=== PATIENT | male | born 1975 | race Caucasian/White ===

== ENCOUNTER 2017-08-05 22:59 | Emergency (ER) | payer SELFPAY ==
--- NOTE | 2017-08-05 23:33 | RADIOLOGY REPORT (SQ) ---
EXAM DESCRIPTION: XR FOOT 3 OR MORE VIEWS COMPLETED DATE/TME: 08/05/2017 00:00 CLINICAL HISTORY: 42 years, Male, Pain s/p injury COMPARISON: None. FINDINGS: 3 views of the left foot. No acute fracture or dislocation. Normal osseous mineralization. Tarsals and metatarsals are appropriately aligned. IMPRESSION: No acute fracture or dislocation. 2011 [employer]- All Rights Reserved
[2017-08-06] MEDS ORDERED: SULFAMETHOXAZOLE/TRIMETHOPRIM 800-160 MG TABLET PO ONE (00:43)
[2017-08-06] MEDS ORDERED: MORPHINE SULFATE IR 15 MG TABLET PO ONE (00:43)
[2017-08-06] MEDS ORDERED: CEPHALEXIN 500 MG CAPSULE PO ONE (00:43)
--- NOTE | 2017-08-06 00:46 | ER Document Report ---
ED Extremity Problem, Lower - General Chief Complaint: Foot Pain Stated Complaint: FOOT PAIN Time Seen by Provider: 08/06/17 00:35 Notes: Patient is a 42-year-old male that comes emergency department for chief complaint of left foot pain. He states that 3 days ago he kicked a scrap metal which caused a scrape on the top of his foot and swelling, he states the area has started to become red and more swollen with spreading redness and increased pain. He states he started to take his friend's amoxicillin but this did not do anything. He states that he is walking on crutches and then accidentally slipped and then he inverted his foot causing pain and even more swelling. He comes by EMS after the inversion injury. His tetanus is up-to-date within 5 years. He is not diabetic. He denies any daily medications. He denies any IV drug abuse, drug abuse, he smokes occasionally. He denies any fever or chills. TRAVEL OUTSIDE OF THE [place] IN LAST 30 DAYS: No - Related Data Allergies/Adverse Reactions: bee pollen [Bee Pollen] Allergy (Verified 12/25/15 04:21) Past Medical History - General Information source: Patient - Social History Smoking Status: Former Smoker Frequency of alcohol use: Occasional Drug Abuse: None Lives with: Alone Family History: Reviewed & Not Pertinent - Past Medical History Cardiac Medical History: Reports: Hx Hypertension Skin Medical History: Reports Hx Cellulitis Past Surgical History: Reports: Hx Orthopedic Surgery - Immunizations Immunizations up to date: Yes Hx Diphtheria, Pertussis, Tetanus Vaccination: Yes Review of Systems - Review of Systems Constitutional: No symptoms reported EENT: No symptoms reported Cardiovascular: No symptoms reported Respiratory: No symptoms reported Gastrointestinal: No symptoms reported Genitourinary: No symptoms reported Male Genitourinary: No symptoms reported Musculoskeletal: See HPI Skin: See HPI Hematologic/Lymphatic: No symptoms reported Neurological/Psychological: No symptoms reported Physical Exam - Vital signs Vitals: Temp Pulse Resp BP Pulse Ox 99.2 F 87 20 148/94 H 100 08/05/17 23:25 08/05/17 23:25 08/05/17 23:25 08/05/17 23:25 08/05/17 23:25 - Notes Notes: GENERAL: Patient appears mildly uncomfortable, no severe distress HEAD: Normocephalic, atraumatic. EYES: Pupils equal, round, and reactive to light. Extraocular movements intact. ENT: Oral mucosa moist, tongue midline. [Nares patent, no nasal septal hematoma , TM's intact.] NECK: Full range of motion. Supple. Trachea midline. LUNGS: Clear to auscultation bilaterally, no wheezes, rales, or rhonchi. No respiratory distress. HEART: Regular rate and rhythm. No murmur ABDOMEN: Soft, non-tender. Non-distended. Bowel sounds present in all 4 quadrants. EXTREMITIES: There is swelling of the soft tissues of the left foot mainly dorsally and also laterally, extends slightly up the ankle, there is erythema and tenderness around abrasions over the dorsal aspect of the foot as well, erythema extends of the ankle slightly. No induration or fluctuance, no discolored drainage, normal distal sensation and capillary refill, remaining lower extremity exam unremarkable. BACK: no cervical, thoracic, lumbar midline tenderness. No saddle anesthesia, normal distal neurovascular exam. NEUROLOGICAL: Alert and oriented x3. Normal speech. [cranial nerves II through XII grossly intact]. PSYCH: Normal affect, normal mood. SKIN: Warm, dry, normal turgor. No rashes or lesions noted. Course - Re-evaluation Re-evalutation: Patient's foot is very swollen on the left side, initially from injury, secondarily from suspected cellulitis based on his exam, and then he twisted his ankle again today. No fracture noted on x-ray, no foreign body, no other abnormality other than soft tissue swelling. Patient is afebrile, normal vital signs, not diabetic, and has had cellulitis in the past with good response to oral medications. Patient placed on oral antibiotics, provided with pain medication, crutches, dressing, and I discussed very carefully with patient recommendations for dressing, care of the wound, elevation, follow-up, and return precautions. Patient states understanding and agreement with plan. - Vital Signs Vital signs: Temp Pulse Resp BP Pulse Ox 98.6 F 80 14 132/66 H 97 08/06/17 03:00 08/06/17 03:00 08/06/17 03:00 08/06/17 03:00 08/06/17 03:00 Procedures - Immobilization Left ankle Pre-Proc Neuro Vasc Exam: Normal Immobilizer type: Sergio wrap Performed by: BOOKER Post-Proc Neuro Vasc Exam: Normal Alignment checked and good: Yes Discharge - Discharge Clinical Impression: Swelling of left foot Injury of left foot Qualifiers: Encounter type: initial encounter Qualified Code(s): S99.922A - Unspecified injury of left foot, initial encounter Cellulitis Qualifiers: Site of cellulitis: extremity Site of cellulitis of extremity: lower extremity Laterality: left Qualified Code(s): L03.116 - Cellulitis of left lower limb Condition: Stable Disposition: HOME, SELF-CARE Additional Instructions: The x-ray is normal. Examination is consistent with soft tissue injury, ligament sprain, and cellulitis from the wound. This needs to be elevated, keep clean, apply topical antibiotic to the abrasion area, clean gently with soap and water, use the crutches, change dressing daily. Take the antibiotics as prescribed. Follow-up with primary care. Return immediately if you worsen including spreading redness, fever, or any other concerning or worsening symptoms. Prescriptions: Morphine Sulfate [Morphine Ir 15 Mg Tablet] 15 mg PO Q4HP PRN #12 tablet PRN Reason: Cephalexin Monohydrate [Keflex 500 mg Capsule] 500 mg PO QID #28 capsule Sulfamethoxazole/Trimethoprim [Bactrim Ds Tablet] 1 each PO BID #14 tablet Forms: Return to Work
[2017-08-06 03:02] VITALS: BP 132/66
== END 2017-08-06 02:59 | disposition home or self-care (01) ==
LOC: ER 22:59
DX: S99.922A Unspecified injury of left foot, initial encounter (principal); L03.116 Cellulitis of left lower limb; M79.672 Pain in left foot; W22.09XA Striking against other stationary object, initial encounter; I10 Essential (primary) hypertension; Z87.891 Personal history of nicotine dependence
CPT/HCPCS: 99283

== ENCOUNTER 2017-08-13 19:34 | Emergency (ER) | payer SELFPAY ==
--- NOTE | 2017-08-13 20:50 | ER Document Report ---
ED Extremity Problem, Lower <JEFFREY RUFFIN - Last Filed: 08/13/17 22:47> - General Mode of Arrival: Ambulatory Information source: Patient TRAVEL OUTSIDE OF THE [place] IN LAST 30 DAYS: No <ROXANN ENAMORADO - Last Filed: 08/15/17 01:28> - General Chief Complaint: Ankle Injury Stated Complaint: ANKLE INJURY Time Seen by Provider: 08/13/17 20:31 Notes: Patient is a 42 year old male presenting to the emergency department complaining of left foot pain. Patient presented to the emergency department on August 05, 2017 complaining of left ankle and foot pain, swelling and redness after kicking a piece of scrap metal which caused abrasions and swelling to the dorsal aspect of his left foot. He was discharged with prescriptions of Keflex and Septra DS. Patient presents today stating he still has left foot pain, redness and erythema. Patient states his pain is exacerbated when standing and describes it as a throbbing pain. He states he initially thought the injury was getting better due to the erythema localizing to the foot instead of the entire lower extremity. He states he finished his doses of antibiotics today and has been keeping his foot elevated. He also states he has been soaking and scrubbing his left foot. Patient denies any fevers. (ROXANN ENAMORADO) - Related Data Allergies/Adverse Reactions: bee pollen [Bee Pollen] Allergy (Verified 12/25/15 04:21) Past Medical History - General Information source: Patient - Social History Smoking Status: Current Every Day Smoker Chew tobacco use (# tins/day): No Frequency of alcohol use: None Drug Abuse: None Family History: Reviewed & Not Pertinent Patient has suicidal ideation: No Patient has homicidal ideation: No - Past Medical History Cardiac Medical History: Reports: Hx Hypertension Skin Medical History: Reports Hx Cellulitis Past Surgical History: Reports: Hx Orthopedic Surgery - Immunizations Immunizations up to date: Yes Hx Diphtheria, Pertussis, Tetanus Vaccination: Yes <ROXANN ENAMORADO - Last Filed: 08/15/17 01:28> Review of Systems - Review of Systems Constitutional: No symptoms reported EENT: No symptoms reported Cardiovascular: No symptoms reported Respiratory: No symptoms reported Gastrointestinal: No symptoms reported Genitourinary: No symptoms reported Male Genitourinary: No symptoms reported Musculoskeletal: See HPI Skin: No symptoms reported Hematologic/Lymphatic: No symptoms reported Neurological/Psychological: No symptoms reported -: Yes All other systems reviewed and negative <ROXANN ENAMORADO - Last Filed: 08/15/17 01:28> Physical Exam <JEFFREY RUFFIN - Last Filed: 08/13/17 22:47> - General General appearance: Appears well, Alert In distress: None - HEENT Head: Normocephalic, Atraumatic Eyes: Normal Conjunctiva: Normal Extraocular movements intact: Yes Pupils: PERRL Neck: Normal - Respiratory Respiratory status: No respiratory distress Chest status: Nontender Breath sounds: Normal Chest palpation: Normal - Cardiovascular Rhythm: Regular Heart sounds: Normal auscultation Murmur: No Friction rub: No Gallop: None auscultated - Back Back: Normal - Extremities General upper extremity: Normal ROM General lower extremity: Normal ROM Foot: Other - Dorsal aspect of left foot is erythematous with some edema. Open wound on the dorsal aspect is approximately 3 cm, contains some exudate and fluctuance with surrounding erythema. No edema to the ankles. Skin peripheral to the original wound is blistering. - Neurological Neuro grossly intact: Yes Cognition: Normal Orientation: AAOx4 Dylon Coma Scale Eye Opening: Spontaneous Dylon Coma Scale Verbal: Oriented Dylon Coma Scale Motor: Obeys Commands [place] Coma Scale Total: 15 Speech: Normal - Psychological Associated symptoms: Normal affect, Normal mood - Skin Skin Temperature: Warm Skin Moisture: Dry <KELSEAFADIELSY - Last Filed: 08/15/17 01:28> - Vital signs Vitals: Pulse Resp BP Pulse Ox 88 18 138/96 H 100 08/13/17 22:00 08/13/17 22:00 08/13/17 22:00 08/13/17 22:00 - Skin Notes: See extremities for open wound description. (ROXANN ENAMORADO) Course - Laboratory Result Diagrams: 08/13/17 20:40 08/13/17 20:40 <JEFFREY RUFFIN - Last Filed: 08/13/17 22:47> - Laboratory Result Diagrams: 08/13/17 20:40 08/13/17 20:40 <ROXANN ENAMORADO - Last Filed: 08/15/17 01:28> - Re-evaluation Re-evalutation: 08/13/17 21:44 PROCEEDURE: Dorsal foot has a scalded skin appearance and tightly adherent blistered skin layer. This adherent skin layer is thick and tough but was able to be elevated and debrided. The patient left dorsal foot wound was scrubbed with saline soaked gauze and debrided with scissors and pickups. There is some granulation tissue in the wound. There was a cellophane-like tightly adherent blistered skin over much of the dorsal foot extending up to the erosion in the center of the foot. This was debrided by running the scissors between the viable skin in this almost clear covering, then trimming it as it blended into normal skin. (JEFFREY RUFFIN) - Vital Signs Vital signs: Temp Pulse Resp BP Pulse Ox 98.1 F 84 18 137/97 H 100 08/13/17 23:46 08/13/17 23:46 08/13/17 23:46 08/13/17 23:46 08/13/17 23:46 - Laboratory Laboratory results interpreted by me: 08/13/17 08/13/17 20:40 20:40 Hgb 12.0 L Hct 35.5 L MCV 79 L MCH 26.7 L Potassium 5.5 H Carbon Dioxide 31 H AST 65 H Discharge <JEFFREY RUFFIN - Last Filed: 08/13/17 22:47> <ROXANN ENAMORADO - Last Filed: 08/15/17 01:28> - Discharge Clinical Impression: Infection of left foot Condition: Stable Disposition: HOME, SELF-CARE Additional Instructions: Take the medications as prescribed. Elevate your foot all the time. Do saline wet-to-dry dressings 4 times daily. Return to the emergency room on Friday to recheck your wound. Prescriptions: Clindamycin HCl 300 mg PO QID #20 capsule Hydrocodone/Acetaminophen [Hydrocodon-Acetaminophen 5-325] 1 each PO Q4 PRN #15 tablet PRN Reason: Forms: Return to Work Scribe Attestation: 08/13/17 21:16 I personally performed the services described in the documentation, reviewed and edited the documentation which was dictated to the scribe in my presence, and it accurately records my words and actions. (JEFFREY RUFFIN) Scribe Documentation - Scribe Written by Keila:: Keila Lee, 08/13/2017 21:15 acting as scribe for :: Barbie <ROXANN ENAMORADO - Last Filed: 08/15/17 01:28>
[2017-08-13 21:03] LABS: ABSOLUTE EOSINOPHILS # (AUTO) 0.2 10^3/uL (0.0-0.6); ABSOLUTE MONOCYTES (AUTO) 0.4 10^3/uL (0.1-1.4); ABSOLUTE NEUT (AUTO) 3.6 10^3/uL (1.7-8.2); BASOPHILS % (AUTO) 0.7 % (0-2); HEMATOCRIT 35.5 % (37.9-51.0); LYMPHOCYTES % (AUTO) 19.4 % (13-45); MEAN CORPUSCULAR HEMOGLOBIN 26.7 pg (27.0-33.4); MEAN CORPUSCULAR HGB CONC 33.7 g/dL (32.0-36.0); MEAN CORPUSCULAR VOLUME 79 fl (80-97); PLATELET COUNT 317 10^3/uL (150-450); RED BLOOD COUNT 4.48 10^6/uL (4.35-5.55); SEGMENTED NEUTROPHILS % (AUTO) 68.9 % (42-78); TOTAL CELLS COUNTED % (AUTO) 100 %; WHITE BLOOD COUNT 5.3 10^3/uL (4.0-10.5)
[2017-08-13 21:17] LABS: ALANINE AMINOTRANSFERASE 63 U/L (21-72); ALBUMIN 3.8 g/dL (3.5-5.0); ALKALINE PHOSPHATASE 63 U/L (38-126); ANION GAP 12 (5-19); ASPARTATE AMINO TRANSFERASE 65 U/L (17-59); BILIRUBIN,DIRECT 0.4 mg/dL (0.0-0.4); BILIRUBIN,TOTAL 0.4 mg/dL (0.2-1.3); BLOOD UREA NITROGEN 12 mg/dL (7-20); CALCIUM 9.5 mg/dL (8.4-10.2); CARBON DIOXIDE 31 mmol/L (22-30); CHLORIDE 98 mmol/L (98-107); GLUCOSE 89 mg/dL (75-110); POTASSIUM 5.5 mmol/L (3.6-5.0); SODIUM 141.2 mmol/L (137-145); TOTAL PROTEIN 7.4 g/dL (6.3-8.2)
[2017-08-13] MEDS ORDERED: KETOROLAC TROMETHAMINE INJ/PF 30 MG/1 ML SDV IV ONE (21:43)
[2017-08-13] MEDS ORDERED: FENTANYL CITRATE INJ/PF 100 MCG/2 ML AMPUL IV ONE (21:44)
[2017-08-13] MEDS ORDERED: CLINDAMYCIN 600 MG/D5W RTU 600 MG/50 ML RTUPB IV ONE (21:44)
[2017-08-13] MEDS ORDERED: HYDROCODONE/ACETAMINOPHEN 5-325 MG (6 TAB/ER DISP) PO PRN (23:37)
[2017-08-13 23:54] VITALS: BP 137/97
== END 2017-08-14 00:30 | disposition home or self-care (01) ==
LOC: ER 19:34
DX: S90.812A Abrasion, left foot, initial encounter (principal); L08.9 Local infection of the skin and subcutaneous tissue, unspecified; W22.8XXA Striking against or struck by other objects, initial encounter; Z91.030 Bee allergy status; F17.200 Nicotine dependence, unspecified, uncomplicated
CPT/HCPCS: 99283; 96375; 96365; 36415; 87040; 87070; 87205; 85025; 80053; J3010; J1885

== ENCOUNTER 2019-04-16 19:54 | Emergency (ER) | payer SELFPAY ==
--- NOTE | 2019-04-16 19:56 | ER Document Report ---
ED Medical Screen (RME) - General Chief Complaint: Overdose Stated Complaint: POSSIBLE OVERDOSE Time Seen by Provider: 04/16/19 19:56 TRAVEL OUTSIDE OF THE [place] IN LAST 30 DAYS: No - HPI Notes: 04/16/19 19:56 Patient is a 44-year-old male with a history of drug abuse and hypertension who presents for medical evaluation as he would like help with his drug abuse. Last use of methamphetamine and Suboxone was a couple days ago. Patient states that his family came by and saw him and encouraged him to come for evaluation and for help. He has no SI or HI at this time, but has had these thoughts in the past. No visual or auditory hallucinations. No recent illness. No chest pain, shortness breath, fever, abdominal pain. I have treated and performed a rapid initial assessment of this patient. A c omprehensive ED assessment and evaluation of the patient, analysis of test results and completion of medical decision making process will be conducted by additional ED providers. PHYSICAL EXAMINATION: GENERAL: Well-appearing, well-nourished and in no acute distress. A&Ox4. Answers questions appropriately. Psych: Poor eye contact, flat affect. - Related Data Allergies/Adverse Reactions: bee pollen [Bee Pollen] Allergy (Verified 12/25/15 04:21) Past Medical History - Past Medical History Cardiac Medical History: Reports: Hx Hypertension Renal/ Medical History: Denies: Hx Peritoneal Dialysis Skin Medical History: Reports Hx Cellulitis Past Surgical History: Reports: Hx Orthopedic Surgery - Immunizations Immunizations up to date: Yes Hx Diphtheria, Pertussis, Tetanus Vaccination: Yes
[2019-04-16 20:54] LABS: APPEARANCE,URINE CLEAR; BILIRUBIN,URINE NEGATIVE (NEGATIVE); COLOR,URINE YELLOW; GLUCOSE, URINE NEGATIVE (NEGATIVE); KETONES,URINE NEGATIVE (NEGATIVE); LEUKOCYTE ESTERASE,URINE NEGATIVE (NEGATIVE); NITRITE,URINE NEGATIVE (NEGATIVE); PROTEIN,URINE 30 mg/dL (NEGATIVE); URINE SPECIFIC GRAVITY 1.018
[2019-04-16 21:04] LABS: ABSOLUTE EOSINOPHILS # (AUTO) 0.3 10^3/uL (0.0-0.6); ABSOLUTE MONOCYTES (AUTO) 0.4 10^3/uL (0.1-1.4); ABSOLUTE NEUT (AUTO) 3.7 10^3/uL (1.7-8.2); BASOPHILS % (AUTO) 0.7 % (0-2); HEMATOCRIT 38.7 % (37.9-51.0); HEMOGLOBIN 13.1 g/dL (13.5-17.0); LYMPHOCYTES % (AUTO) 17.7 % (13-45); MEAN CORPUSCULAR HEMOGLOBIN 27.6 pg (27.0-33.4); MEAN CORPUSCULAR HGB CONC 33.8 g/dL (32.0-36.0); MEAN CORPUSCULAR VOLUME 82 fl (80-97); MONOCYTES % (AUTO) 8.3 % (3-13); PLATELET COUNT 217 10^3/uL (150-450); RED BLOOD COUNT 4.75 10^6/uL (4.35-5.55); RED CELL DISTRIBUTION WIDTH 14.9 % (11.5-14.0); SEGMENTED NEUTROPHILS % (AUTO) 68.3 % (42-78); TOTAL CELLS COUNTED % (AUTO) 100 %; WHITE BLOOD COUNT 5.4 10^3/uL (4.0-10.5)
[2019-04-16 21:28] LABS: URINE BARBITURATES SCREEN NEGATIVE; URINE BENZODIAZEPINES SCREEN NEGATIVE; URINE COCAINE SCREEN NEGATIVE; URINE MARIJUANA (THC) SCREEN NEGATIVE; URINE METHADONE SCREEN NEGATIVE; URINE PHENCYCLIDINE SCREEN NEGATIVE
[2019-04-16 21:33] LABS: ALKALINE PHOSPHATASE 65 U/L (38-126); ANION GAP 8 (5-19); ASPARTATE AMINO TRANSFERASE 53 U/L (17-59); BILIRUBIN,DIRECT 0.3 mg/dL (0.0-0.4); BILIRUBIN,TOTAL 0.5 mg/dL (0.2-1.3); BLOOD UREA NITROGEN 13 mg/dL (7-20); CALCIUM 9.4 mg/dL (8.4-10.2); CARBON DIOXIDE 28 mmol/L (22-30); CHLORIDE 104 mmol/L (98-107); GLUCOSE 112 mg/dL (75-110); POTASSIUM 4.1 mmol/L (3.6-5.0); TOTAL PROTEIN 7.1 g/dL (6.3-8.2)
[2019-04-16 21:35] LABS: ACETAMINOPHEN < 10 ug/mL (10-30); ALCOHOL < 10 mg/dL (NONE DETECTED); SALICYLATE < 1.0 mg/dL (2.0-20.0)
[2019-04-16] MEDS ORDERED: ACETAMINOPHEN 325 MG TABLET PO ONE (22:01)
--- NOTE | 2019-04-16 22:13 | ER Document Report ---
ED General - General Chief Complaint: Drug Abuse Stated Complaint: POSSIBLE OVERDOSE Time Seen by Provider: 04/16/19 19:56 TRAVEL OUTSIDE OF THE [place] IN LAST 30 DAYS: No - HPI Notes: Mr. Anson Eastman is a 44-year-old male presenting with complaint of headaches and intermittent auditory and visual hallucinations. Patient is homeless. He is a poor historian and indicates that he has used a variety of street drugs. Among these he specifically mentions Suboxone and methamphetamine. He is homeless and apparently has a longstanding history of drug abuse. He is unemployed. He denies ever going through detox. He showed up at his sister's house this evening and banging on the door and requested food. Sister appreciated that he was in need of mental health attention and brought him here to the emergency department. She says she is "afraid of him" although when I question her she does not make any allegations that he has made either verbal or physical threats to himself or others. Patient says that he has a dull headache. He denies trauma. He denies fever. He would like to get some Ty lenol and some food to eat. He freely admits that he is occasionally seeing "things moving" and also he hears voices talking to him which she describes as "some people trying to mess with me". He is denying any command hallucinations. He denies any plan to harm himself or others. He denies any regular use of alcohol. Says he does smoke marijuana "sometimes". He denies any past history of any significant medical problems. He is allergic to bee pollen. No major surgery. Non-smoker. - Related Data Allergies/Adverse Reactions: bee pollen [Bee Pollen] Allergy (Verified 12/25/15 04:21) Past Medical History - General Information source: Patient, Relative - Social History Smoking Status: Former Smoker Drug Abuse: Methamphetamine, Other - Suboxone Lives with: Homeless Family History: Reviewed & Not Pertinent Patient has suicidal ideation: Yes Patient has homicidal ideation: Yes - Past Medical History Cardiac Medical History: Reports: Hx Hypertension Renal/ Medical History: Denies: Hx Peritoneal Dialysis Skin Medical History: Reports Hx Cellulitis Past Surgical History: Reports: Hx Orthopedic Surgery - Immunizations Immunizations up to date: Yes Hx Diphtheria, Pertussis, Tetanus Vaccination: Yes Review of Systems - Review of Systems Notes: Constitutional: Negative for fever. HENT: Negative for sore throat. Eyes: Negative for visual changes. Cardiovascular: Negative for chest pain. Respiratory: Negative for shortness of breath. Gastrointestinal: Negative for abdominal pain, vomiting or diarrhea. Genitourinary: Negative for dysuria. Musculoskeletal: Negative for back pain. Skin: Negative for rash. Neurological: As per HPI. 10 point ROS negative except as marked above and in HPI. Physical Exam - Vital signs Vitals: Temp Pulse Resp BP Pulse Ox 98.1 F 81 18 165/98 H 97 04/16/19 20:01 04/16/19 20:01 04/16/19 20:01 04/16/19 20:01 04/16/19 20:01 - Notes Notes: GENERAL: Well-developed well-nourished appearing in no acute distress. SKIN: Good turgor no rashes. HEAD: Normocephalic atraumatic. EYES: PERRLA. EOMI. Conjunctivae and sclerae clear. EARS: CANALS AND TMS CLEAR. NOSE: CLEAR. MOUTH: Moist mucosa. Good dentition. No stridor or edema. No drooling. NECK: Supple. No masses or thyromegaly. No adenopathy. Carotids 2+ without bruits. No JVD. BACK: Symmetrical without tenderness. CHEST: Respirations unlabored. Breath sounds clear and symmetrical. HEART: Regular rhythm. No murmur gallop or rub. ABDOMEN: Soft nontender without masses, organomegaly or rebound. Bowel sounds normally active. No bruits. GENITALIA: Deferred. EXTREMITIES: Moderate degenerative changes of inner phalangeal joints both hands. No edema. No calf tenderness. Cap refill less than 1.5 seconds. Dorsalis pedis and posterior tibial pulses 3+ and symmetrical. NEUROLOGICAL: GCS 15. Alert and oriented x3. Normal gait. Fluent speech. Cranial nerves II through XII intact. Sensorimotor and cerebellar normal. Normal tone. PSYCHIATRIC: Appears mildly anxious. Course - Re-evaluation Re-evalutation: 04/16/19 22:56 This man's urine is positive for amphetamine and consistent with his history of drug abuse. I think he is having some drug-induced psychosis. He clearly has very poor insight and does not appear able to care for himself at this point. Findings were discussed with our clinical psychologist Dr. Fazal Segura who is very familiar with this gentleman from previous encounters. She notes that the patient's was murdered in the past and that his college-age son also committed suicide. There may be a substantial element of PTSD here. We agree that the patient's best interest would be served by a 24-hour involuntary hold. I have completed appropriate paperwork for this. His medical evaluation is unremarkable otherwise at this point including a negative head CT. - Vital Signs Vital signs: Temp Pulse Resp BP Pulse Ox 98.1 F 81 18 165/98 H 97 04/16/19 20:01 04/16/19 20:01 04/16/19 20:01 04/16/19 20:01 04/16/19 20:01 - Laboratory Result Diagrams: 04/16/19 20:43 04/16/19 20:43 Laboratory results interpreted by me: 04/16/19 04/16/19 04/16/19 20:28 20:43 20:43 Hgb 13.1 L RDW 14.9 H Glucose 112 H Urine Protein 30 H Urine Blood SMALL H Urine Urobilinogen 4.0 H Salicylates < 1.0 L Acetaminophen < 10 L - Diagnostic Test Radiology reviewed: Reports reviewed - Noncontrast head CT shows no acute changes per radiologist. - EKG Interpretation by Me Additional EKG results interpreted by me: 04/16/19 22:14 Twelve-lead EKG from 2030 hrs. is reviewed contemporaneously by me showing normal sinus rhythm with rate of 80 and a normal axis of [address]-T wave changes present. Intervals are normal. Discharge - Discharge Clinical Impression: Polysubstance abuse with drug-induced ps Disposition: PSYCH HOSP/UNIT
--- NOTE | 2019-04-16 22:45 | RADIOLOGY REPORT (SQ) ---
CT HEAD WITHOUT IV CONTRAST CLINICAL STATEMENT: headache TECHNIQUE: Axial CT images from skull base to vertex without IV contrast. This exam was performed according to our departmental dose optimization program, and includes the following measures where applicable: automated exposure control, adjustment of the mAs and/or kVp according to patient size and/or exam, and an iterative reconstruction algorithm. COMPARISON: None. FINDINGS: There is no acute intracranial hemorrhage, mass, mass effect or abnormal extra-axial fluid collection. No evidence of an acute territorial infarct is identified. The ventricles are normal. Calvaria: The skull base and calvaria demonstrate no abnormality. Paranasal sinuses: Visualized portions of the orbits and paranasal sinuses are unremarkable. skull base: Unremarkable IMPRESSION: No acute intracranial abnormality.
[2019-04-16] MEDS ORDERED: IBUPROFEN 600 MG TABLET PO PRN (23:26)
[2019-04-17] MEDS ORDERED: LORAZEPAM 1 MG TABLET PO ONE (01:38)
--- NOTE | 2019-04-17 10:07 | PSYCHOLOGICAL NOTE ---
Psych Note - Psych Note Date seen by psych provider: 04/17/19 Time seen by psych provider: 09:25 Psych Note: Reason For Consult:Psychosis Consent Permissions:none provided Patient discloses that he came to [facility] because he was "seeing things and had a headache." He states that this has happened before and confirms long history of substance abuse. He states that currently he uses Suboxone and meth. He continued report that he has "probably used everything at least a few times." Patient states he has been homeless for about 6 years. He reports that this is the first time that he went to his family asking for help. He states he wants assistance in getting sober but is worried that he does not have the money for services. He denies any difficulty with seeing or hearing things that confuse her scare him currently. Patient reports that he was sleeping really good states that has not had good sleep for as long as he can remember. When clinician pointed out that breakfast had arrived he reported that yes he would like to eat it however he would like to get some more sleep first. Patient is alert and orientated to person, place, time and circumstance. Mood is overall euthymic with congruent affect; clinician notes patient was awoken for evaluation. Patient denies suicidal and homicidal ideation. Delusions are absent and behaviors congruent with an intact reality based presentation ie organized and linear thought process. Eye contact is fair to poor (patient was struggling to stay wake). Conversational speech is within normal rate, tone and prosody. Intellectual abilities appear to be within the average range. Atte ntion and concentration are good. Insight, judgment, impulse control are fair. Impression\\plan: Patient is recommended for rescind of IVC and is cleared from acute psychiatric services. Patient arrived to [facility] ED with concerns of auditory and visual hallucinations. Patient is currently denying experiencing any difficulties and is not demonstrating any behaviors of responding to internal stimuli as evidenced by organized and linear thought processes and normal conversational speech. Patient does have a longstanding substance abuse and is requesting assistance in obtaining sobriety. He confirms he went to his family's home for the first time to ask for help so they brought him to [facility] ED. Substance abuse treatment is voluntary and he is asking for assistance. Behavior health team was able to confirm there was a voluntary bed at the [facility]. Patient is highly encouraged to follow through with this placement as they can assist with detox and with follow-up substance abuse treatment for residential and/or outpatient. Dr. Segura was consulted to care management of this patient; attending physicians in agreement with recommendations and disposition.
--- NOTE | 2019-04-17 10:59 | ER Document Report ---
Doctor's Note Notes: 04/17/19 10:58 Patient had just woken up. Patient alert and oriented x3. Patient currently denies auditory or visual hallucinations. Patient denies suicidal or homicidal ideation. Patient was previously medically cleared by Dr. Quan. Patient does complain of a mild headache and hunger. Breakfast was provided. Motrin ordered as needed and to be given prior to discharge to [facility]. I did discuss the discharge instructions with the patient to include going over to [facility] as he does have a bed available for him.
[2019-04-17 11:09] VITALS: BP 135/92
--- NOTE | 2019-04-17 21:54 | EKG REPORT ---
SEVERITY:- ABNORMAL ECG - SINUS RHYTHM PROBABLE ANTEROSEPTAL INFARCT, AGE INDETERM : Confirmed by: Sabi Looney 17-Apr-2019 21:53:34
== END 2019-04-17 11:08 | disposition home or self-care (01) ==
LOC: ER 19:54
DX: F15.19 Other stimulant abuse with unspecified stimulant-induced disorder (principal); F19.19 Other psychoactive substance abuse with unspecified psychoactive substance-induced disorder; I10 Essential (primary) hypertension; R51 Headache; R44.1 Visual hallucinations; R44.0 Auditory hallucinations; Z59.0 Homelessness; Z91.030 Bee allergy status; Z87.891 Personal history of nicotine dependence
CPT/HCPCS: 93005; 36415; 80307 ×5; 85025; 80053; 81001; 70450; 93010; G0480; 99285

== ENCOUNTER 2019-04-21 06:30 | Emergency (ER) | payer SELFPAY ==
[2019-04-21 10:41] LABS: ABSOLUTE EOSINOPHILS # (AUTO) 0.4 10^3/uL (0.0-0.6); ABSOLUTE MONOCYTES (AUTO) 0.4 10^3/uL (0.1-1.4); ABSOLUTE NEUT (AUTO) 3.6 10^3/uL (1.7-8.2); BASOPHILS % (AUTO) 0.5 % (0-2); EOSINOPHILS % (AUTO) 7.1 % (0-6); HEMATOCRIT 39.6 % (37.9-51.0); HEMOGLOBIN 13.6 g/dL (13.5-17.0); LYMPHOCYTES % (AUTO) 18.3 % (13-45); MEAN CORPUSCULAR HEMOGLOBIN 28.2 pg (27.0-33.4); MEAN CORPUSCULAR HGB CONC 34.3 g/dL (32.0-36.0); MEAN CORPUSCULAR VOLUME 82 fl (80-97); MONOCYTES % (AUTO) 8.2 % (3-13); PLATELET COUNT 188 10^3/uL (150-450); RED BLOOD COUNT 4.83 10^6/uL (4.35-5.55); RED CELL DISTRIBUTION WIDTH 14.9 % (11.5-14.0); SEGMENTED NEUTROPHILS % (AUTO) 65.9 % (42-78); TOTAL CELLS COUNTED % (AUTO) 100 %; WHITE BLOOD COUNT 5.4 10^3/uL (4.0-10.5)
[2019-04-21 11:10] LABS: ALBUMIN 3.8 g/dL (3.5-5.0); ALKALINE PHOSPHATASE 65 U/L (38-126); ANION GAP 6 (5-19); ASPARTATE AMINO TRANSFERASE 45 U/L (17-59); BILIRUBIN,TOTAL 0.4 mg/dL (0.2-1.3); BLOOD UREA NITROGEN 17 mg/dL (7-20); CALCIUM 8.8 mg/dL (8.4-10.2); CARBON DIOXIDE 27 mmol/L (22-30); CHLORIDE 107 mmol/L (98-107); GLUCOSE 88 mg/dL (75-110); POTASSIUM 4.5 mmol/L (3.6-5.0); TOTAL PROTEIN 6.7 g/dL (6.3-8.2)
[2019-04-21 11:11] LABS: ACETAMINOPHEN < 10 ug/mL (10-30); ALCOHOL < 10 mg/dL (NONE DETECTED); SALICYLATE < 1.0 mg/dL (2.0-20.0)
--- NOTE | 2019-04-21 11:18 | ER Document Report ---
ED General - General Chief Complaint: Ear Pain Stated Complaint: EAR PAIN Time Seen by Provider: 04/21/19 08:29 Mode of Arrival: Ambulatory Information source: Patient TRAVEL OUTSIDE OF THE U.S. IN LAST 30 DAYS: No - HPI Notes: Patient presents with multiple complaints. These include right ear pain. This ear pain is been intermittent for the last week. He does not know breathing makes it better or worse. He states it is sharp. He does not know of any radiation of the pain. It is been moderate in intensity. He also states he is had some vision changes but cannot describe this to me. He also states he has been hearing some voices. He states that they do not "say anything bad". He states he does not know who his voice this is. Patient also states that he "sees things". Patient cannot elaborate on this. Patient was recently sent to [facility]. He denies any recent drug or alcohol use. He states that he does take Suboxone when he can but has not had it in over a week. Patient denies any vomiting or diarrhea. He denies any suicidal ideation. He denies any current homicidal ideation. - Related Data Allergies/Adverse Reactions: bee pollen [Bee Pollen] Allergy (Verified 12/25/15 04:21) Past Medical History - General Information source: Patient - Social History Smoking Status: Former Smoker Chew tobacco use (# tins/day): No Frequency of alcohol use: Occasional Drug Abuse: Cocaine, Marijuana Family History: Reviewed & Not Pertinent Patient has suicidal ideation: No Patient has homicidal ideation: No - Past Medical History Cardiac Medical History: Reports: Hx Hypertension Renal/ Medical History: Denies: Hx Peritoneal Dialysis Skin Medical History: Reports Hx Cellulitis Past Surgical History: Reports: Hx Orthopedic Surgery - l arm - Immunizations Immunizations up to date: Yes Hx Diphtheria, Pertussis, Tetanus Vaccination: Yes Review of Systems - Review of Systems Constitutional: denies: Chills, Fever Cardiovascular: denies: Chest pain, Palpitations Respiratory: denies: Cough, Short of breath -: Yes All other systems reviewed and negative Physical Exam - Vital signs Vitals: Temp Pulse Resp BP Pulse Ox 97.8 F 66 17 133/86 H 100 04/21/19 07:11 04/21/19 07:11 04/21/19 07:11 04/21/19 07:11 04/21/19 07:11 Interpretation: Normal - General General appearance: Appears well, Alert - HEENT Head: Normocephalic, Atraumatic Eyes: Normal Pupils: PERRL Ears: Normal External canal: Normal Tympanic membrane: Normal Mouth/Lips: Normal Mucous membranes: Moist - Respiratory Respiratory status: No respiratory distress Chest status: Nontender Breath sounds: Normal Chest palpation: Normal - Cardiovascular Rhythm: Regular Heart sounds: Normal auscultation Murmur: No - Abdominal Inspection: Normal Distension: No distension Bowel sounds: Normal Tenderness: Nontender Organomegaly: No organomegaly - Back Back: Normal, Nontender - Extremities General upper extremity: Normal inspection, Nontender, Normal color, Normal ROM, Normal temperature General lower extremity: Normal inspection, Nontender, Normal color, Normal ROM, Normal temperature, Normal weight bearing. No: Davin's sign - Neurological Neuro grossly intact: Yes Cognition: Normal Orientation: AAOx4 Dylon Coma Scale Eye Opening: Spontaneous [place] Coma Scale Verbal: Oriented Dylon Coma Scale Motor: Obeys Commands Dylon Coma Scale Total: 15 Speech: Normal Cranial nerves: Normal Cerebellar coordination: Normal Motor strength normal: LUE, RUE, LLE, RLE Additional motor exam normals: Equal meter calibrator. No: Pronator drift Sensory: Normal - Psychological Associated symptoms: Normal mood, Flat affect, Visual hallucinations - None current - Skin Skin Temperature: Warm Skin Moisture: Dry Skin Color: Normal Course - Re-evaluation Re-evalutation: 04/21/19 11:15 Patient presents with multiple complaints. I do not find any evidence of any type of infectious etiology for his ear pain. His ear exam is unremarkable. It is also unremarkable to palpation. Inspection of the ear is also unremarkable. The eardrum is normal. Patient has some psychiatric complaints and I did have h im evaluated by psychiatry. They have deemed that the patient is suitable for discharge. I do agree with this. They have arranged resources for the patient and discussed them with him. - Vital Signs Vital signs: Temp Pulse Resp BP Pulse Ox 97.8 F 66 17 133/86 H 100 04/21/19 07:11 04/21/19 07:11 04/21/19 07:11 04/21/19 07:11 04/21/19 07:11 - Laboratory Result Diagrams: 04/21/19 10:33 04/21/19 10:33 Laboratory results interpreted by me: 04/21/19 04/21/19 10:33 10:33 RDW 14.9 H Eos % (Auto) 7.1 H Salicylates < 1.0 L Acetaminophen < 10 L - EKG Interpretation by Me EKG shows normal: Sinus rhythm Rate: Normal - 62 Rhythm: NSR [place]/QRS: No: Right axis deviation, Left axis deviation Discharge - Discharge Clinical Impression: Right ear pain, Visual hallucinations, Auditory hallucinations Condition: Stable Disposition: HOME, SELF-CARE Instructions: Hallucinations ([facility]) Additional Instructions: Please follow-up with the resources given to you as soon as possible Referrals: [facility] [Provider Group] - Follow up in 3-5 days
[2019-04-21 11:25] VITALS: BP 132/74
--- NOTE | 2019-04-21 12:24 | PSYCHOLOGICAL NOTE ---
Psych Note - Psych Note Date seen by psych provider: 04/21/19 Time seen by psych provider: 10:05 Psych Note: Reason For Consult:hallucinations Patient greeted clinician and reports that he did go to [facility] voluntarily after last seeing the behavioral health team here at [facility]. He states that he did not stay long because he did not feel comfortable there. He reports that he has not used "much" and states he is working really hard at maintaining sobriety. He confirms he would like resources for continued services for substance abuse. Patient discusses concerns about hearing from other people that it is easy to get a hold of drugs when in rehab, so is worried that if he goes to rehab it would be difficult being surrounded by the drugs. He reports that he is thinking about changing his location and going to [place] rather than rehab so he can change people he is with in his environment. He denies any thoughts of wanting to harm himself or others. He confirms he still experiences auditory hallucinations at times however denies any current difficulties with this. Patient reports he is going to try to stay at his sister's house tonight as he thinks that she will let him. He states that he will talk to her about transportation to a rehab facility. Patient is alert and orientated to person, place, time and circumstance. Mood is euthymic with congruent affect as evidenced by smiling engaging with clinician. Patient denies suicidal and homicidal ideation. Delusions are absent and behaviors congruent with an intact reality based presentation ie organized and linear thought process. Eye contact is well-maintained. Conversational speech is within normal rate, tone and prosody. Intellectual abilities appear to be within the average range. Attention and concentration are good. Insight, judgment, impulse control are fair. Impression\\plan: Patient is cleared from acute psychiatric services. Patient presented euthymic with congruent affect by smiling engaging with clinician. He reports he came to [facility] ED for medical concern. He denies any concerns for current hallucinations however states they have been still occurring. Patient states he has not used "much" drugs recently and is trying hard at maintaining sobriety. He is willing to take resources for additional support such as rehab. He reports he did not care for the [facility]. Patient developed plan of care of possibly moving to a new location to change the people he associates with in his environment in an effort to maintain sobriety. Dr. Segura was consulted to care management of this patient; attending physicians in agreement with recommendations and disposition.
--- NOTE | 2019-04-21 17:22 | EKG REPORT ---
SEVERITY:- ABNORMAL ECG - SINUS RHYTHM ABNRM R PROG, CONSIDER ASMI OR LEAD PLACEMENT : Confirmed by: Melonie Vaughn MD 21-Apr-2019 17:21:58
== END 2019-04-21 11:24 | disposition home or self-care (01) ==
LOC: ER 06:30
DX: H92.01 Otalgia, right ear (principal); R44.1 Visual hallucinations; R44.0 Auditory hallucinations; F14.10 Cocaine abuse, uncomplicated; F12.10 Cannabis abuse, uncomplicated; Z87.891 Personal history of nicotine dependence
CPT/HCPCS: 36415; 80053; 80307; 85025; 93005; 93010; 99284

== ENCOUNTER 2019-04-23 01:12 | Emergency (ER) | payer SELFPAY ==
[2019-04-23 01:52] VITALS: BP 136/99
== END 2019-04-23 06:33 | disposition left against medical advice (07) ==
LOC: ER 01:12
DX: Z53.21 Procedure and treatment not carried out due to patient leaving prior to being seen by health care provider (principal)

== ENCOUNTER 2019-04-24 16:14 | Emergency (ER) | payer SELFPAY ==
--- NOTE | 2019-04-24 16:23 | ER Document Report ---
ED Medical Screen (RME) - General Chief Complaint: Psych Problem Stated Complaint: PSYCH EVAL Time Seen by Provider: 04/24/19 16:22 TRAVEL OUTSIDE OF THE U.S. IN LAST 30 DAYS: No - HPI Notes: 04/24/19 16:22 Patient is a 44-year-old male who presents with his yt-uabufg-cl-law for drug use, visual and auditory hallucinations. He is also complaining of some nasal discharge discharge and a cough. Patient states he has bugs coming out of the skin. He states that the [employer] is making him do things. He is also stating that his TV is talking to him. He has been very paranoid per ez-pazayr-mu-law. Last use of methamphetamine was last night by inhalation. I have treated and performed a rapid initial assessment of this patient. A comprehensive ED assessment and evaluation of the patient, analysis of test results and completion of medical decision making process will be conducted by additional ED providers. PHYSICAL EXAMINATION: GENERAL: Well-appearing, well-nourished and in no acute distress. Psych: Animated and talking of paranoia and bugs coming out of his skin. - Related Data Allergies/Adverse Reactions: bee pollen [Bee Pollen] Allergy (Verified 04/24/19 16:20) Past Medical History - Past Medical History Cardiac Medical History: Reports: Hx Hypertension Renal/ Medical History: Denies: Hx Peritoneal Dialysis Skin Medical History: Reports Hx Cellulitis Past Surgical History: Reports: Hx Orthopedic Surgery - l arm - Immunizations Immunizations up to date: Yes Hx Diphtheria, Pertussis, Tetanus Vaccination: Yes
[2019-04-24 16:26] VITALS: BP 147/107
--- NOTE | 2019-04-24 16:56 | ER Document Report ---
ED General - General Chief Complaint: Psych Problem Stated Complaint: PSYCH EVAL Time Seen by Provider: 04/24/19 16:22 Mode of Arrival: Ambulatory Information source: Patient Notes: per staff note Patient presents to ED. Patient states he recently used meth. Patient with sores across skin. Patient rambling on. not making sense. talking about UFOs. Patient states people are out to get him and mentioned wanting to hurt someone with nurse but didn't mention who. Patient denies thoughts of SI. awake and alert but unable to answer questions appropriately. Patient's wf-nelfao-un-law with him at this time. 44-year-old male arrives by POV with his tnbjol-ue-vch Jacqueline Partick.. Actually his bs-tmgihd-aa-law he is . Patient has been living on the streets and taking meth and amphetamines for the last year every day or so. He has been seeing things and hearing voices which are not there. Patient denies any suicidal ideation or any homicidal ideation. He has shaking fits on a daily basis. He denies any loss of consciousness or loss of bowel or bladder TRAVEL OUTSIDE OF THE U.S. IN LAST 30 DAYS: No - HPI Onset: Yesterday - Related Data Allergies/Adverse Reactions: bee pollen [Bee Pollen] Allergy (Verified 04/24/19 16:20) Past Medical History - General Information source: Patient - Social History Smoking Status: Current Every Day Smoker Cigarette use (# per day): Yes Chew tobacco use (# tins/day): No Smoking Education Provided: Yes Frequency of alcohol use: None Drug Abuse: Methamphetamine Lives with: Alone - Patient reports he stays with some friends and he has suspicion against them because he thinks they may they may be after him." Family History: Reviewed & Not Pertinent Patient has suicidal ideation: No Patient has homicidal ideation: No - Past Medical History Cardiac Medical History: Reports: Hx Hypertension Renal/ Medical History: Denies: Hx Peritoneal Dialysis Skin Medical History: Reports Hx Cellulitis Past Surgical History: Reports: Hx Orthopedic Surgery - l arm - Immunizations Immunizations up to date: Yes Hx Diphtheria, Pertussis, Tetanus Vaccination: Yes Review of Systems - Review of Systems Constitutional: See HPI, Malaise, Weight loss EENT: No symptoms reported Cardiovascular: No symptoms reported Respiratory: No symptoms reported Gastrointestinal: No symptoms reported Genitourinary: No symptoms reported Male Genitourinary: No symptoms reported Musculoskeletal: No symptoms reported Skin: No symptoms reported Hematologic/Lymphatic: No symptoms reported Neurological/Psychological: See HPI, Hallucinations, Weakness, Tingling, Tremor Physical Exam - Vital signs Vitals: Temp Pulse Resp BP Pulse Ox 98.3 F 97 16 147/107 H 96 04/24/19 16:25 04/24/19 16:25 04/24/19 16:25 04/24/19 16:25 04/24/19 16:25 Interpretation: Hypertensive - HEENT Head: Normocephalic Eyes: Normal Conjunctiva: Normal Cornea: Normal Extraocular movements intact: Yes Eyelashes: Normal Pupils: PERRL Nasal: Normal Mouth/Lips: Normal Neck: Normal - Respiratory Respiratory status: No respiratory distress Chest status: Nontender Breath sounds: Normal Chest palpation: Normal - Cardiovascular Rhythm: Regular Heart sounds: Normal auscultation Murmur: No Friction rub: No Vijay's crunch: No - Abdominal Inspection: Normal Distension: No distension Bowel sounds: Normal Tenderness: Nontender Organomegaly: No organomegaly - Back Back: Normal - Extremities General upper extremity: Normal inspection General lower extremity: Normal inspection - Neurological Neuro grossly intact: Yes Cognition: Normal Orientation: AAOx4 Dylon Coma Scale Eye Opening: Spontaneous [place] Coma Scale Verbal: Oriented Dylon Coma Scale Motor: Obeys Commands Dylon Coma Scale Total: 15 Speech: Normal Cranial nerves: Normal Motor strength normal: LUE, RUE, LLE, RLE Course - Vital Signs Vital signs: Temp Pulse Resp BP Pulse Ox 98.3 F 97 16 147/107 H 96 04/24/19 16:25 04/24/19 16:25 04/24/19 16:25 04/24/19 16:25 04/24/19 16:25 Critical Care Note - Critical Care Note Total time excluding time spent on procedures (mins): 90 Comments: Patient placed on IVC papers Discharge - Discharge Clinical Impression: Visual hallucinations, Auditory hallucinations Amphetamine-induced psychotic disorder Qualifiers: Complication of substance-induced condition: with hallucinations Qualified Code(s): F15.951 - Other stimulant use, unspecified with stimulant-induced psychotic disorder with hallucinations Condition: Stable Disposition: PSYCH HOSP/UNIT
--- NOTE | 2019-04-24 17:04 | RADIOLOGY REPORT (SQ) ---
EXAM DESCRIPTION: CHEST 2 VIEWS COMPLETED DATE/TIME: 04/24/2019 4:54 pm REASON FOR STUDY: cough COMPARISON: 12/25/2015 EXAM PARAMETERS: NUMBER OF VIEWS: two views TECHNIQUE: Digital Frontal and Lateral radiographic views of the chest acquired. RADIATION DOSE: NA LIMITATIONS: none FINDINGS: LUNGS AND PLEURA: No opacities, masses or pneumothorax. No pleural effusion. MEDIASTINUM AND HILAR STRUCTURES: No masses or contour abnormalities. HEART AND VASCULAR STRUCTURES: Heart normal size. No evidence for failure. BONES: No acute findings. HARDWARE: None in the chest. OTHER: No other significant finding. IMPRESSION: NO ACUTE RADIOGRAPHIC FINDING IN THE CHEST. TECHNICAL DOCUMENTATION: JOB ID: [id number] 2010 [employer] All Rights Reserved Reading location - IP/workstation name: [email or web address]
--- NOTE | 2019-04-24 17:24 | EKG REPORT ---
SEVERITY:- NORMAL ECG - SINUS RHYTHM : Confirmed by: Melonie Vaughn MD 24-Apr-2019 17:23:58
[2019-04-24 18:00] LABS: ABSOLUTE EOSINOPHILS # (AUTO) 0.3 10^3/uL (0.0-0.6); ABSOLUTE LYMPHOCYTES (AUTO) 1.2 10^3/uL (0.5-4.7); ABSOLUTE MONOCYTES (AUTO) 0.4 10^3/uL (0.1-1.4); ABSOLUTE NEUT (AUTO) 3.3 10^3/uL (1.7-8.2); BASOPHILS % (AUTO) 0.8 % (0-2); EOSINOPHILS % (AUTO) 6.6 % (0-6); HEMOGLOBIN 13.4 g/dL (13.5-17.0); LYMPHOCYTES % (AUTO) 23.1 % (13-45); MEAN CORPUSCULAR HEMOGLOBIN 27.8 pg (27.0-33.4); MEAN CORPUSCULAR HGB CONC 34.4 g/dL (32.0-36.0); MEAN CORPUSCULAR VOLUME 81 fl (80-97); MONOCYTES % (AUTO) 6.8 % (3-13); PLATELET COUNT 234 10^3/uL (150-450); RED BLOOD COUNT 4.82 10^6/uL (4.35-5.55); RED CELL DISTRIBUTION WIDTH 15.2 % (11.5-14.0); SEGMENTED NEUTROPHILS % (AUTO) 62.7 % (42-78); TOTAL CELLS COUNTED % (AUTO) 100 %; WHITE BLOOD COUNT 5.2 10^3/uL (4.0-10.5)
[2019-04-24 18:36] LABS: ALBUMIN 4.2 g/dL (3.5-5.0); ALKALINE PHOSPHATASE 60 U/L (38-126); ANION GAP 6 (5-19); ASPARTATE AMINO TRANSFERASE 37 U/L (17-59); BILIRUBIN,DIRECT 0.1 mg/dL (0.0-0.4); BILIRUBIN,TOTAL 0.4 mg/dL (0.2-1.3); BLOOD UREA NITROGEN 11 mg/dL (7-20); CALCIUM 9.3 mg/dL (8.4-10.2); CARBON DIOXIDE 28 mmol/L (22-30); CHLORIDE 104 mmol/L (98-107); GLUCOSE 87 mg/dL (75-110); POTASSIUM 4.4 mmol/L (3.6-5.0); TOTAL PROTEIN 7.2 g/dL (6.3-8.2)
[2019-04-24 18:40] LABS: ACETAMINOPHEN < 10 ug/mL (10-30); ALCOHOL < 10 mg/dL (NONE DETECTED); SALICYLATE < 1.0 mg/dL (2.0-20.0)
[2019-04-24 18:54] LABS: APPEARANCE,URINE CLEAR; BILIRUBIN,URINE NEGATIVE (NEGATIVE); COLOR,URINE YELLOW; GLUCOSE, URINE NEGATIVE (NEGATIVE); KETONES,URINE NEGATIVE (NEGATIVE); LEUKOCYTE ESTERASE,URINE NEGATIVE (NEGATIVE); NITRITE,URINE NEGATIVE (NEGATIVE); PROTEIN,URINE NEGATIVE (NEGATIVE); URINE SPECIFIC GRAVITY 1.017
[2019-04-24 19:06] LABS: URINE BARBITURATES SCREEN NEGATIVE; URINE BENZODIAZEPINES SCREEN NEGATIVE; URINE COCAINE SCREEN NEGATIVE; URINE MARIJUANA (THC) SCREEN NEGATIVE; URINE METHADONE SCREEN NEGATIVE; URINE PHENCYCLIDINE SCREEN NEGATIVE
[2019-04-25] MEDS ORDERED: DIPHENHYDRAMINE HCL 50 MG/ML VIAL IM ONE (01:54)
[2019-04-25] MEDS ORDERED: HALOPERIDOL LACTATE INJ 5 MG/1 ML VIAL IM ONE (01:54)
[2019-04-25] MEDS ORDERED: LORAZEPAM INJ 2 MG/1 ML VIAL IM ONE (01:55)
--- NOTE | 2019-04-25 09:15 | ER Document Report ---
Doctor's Note Notes: 04/25/19 09:14 Pt is nontoxic, well appearing. Pt denies SI/HI this morning. Pt is sleeping comfortably. Plan of care per psych team is to rescind IVC and provide pt with outpatient resources. 04/25/19 12:50 Pt is eating. Ambulating without difficulty. Pt's IVC was rescinded and pt provided with outpatient resources. Pt will be discharged after he is finished with eating lunch.
--- NOTE | 2019-04-25 12:29 | PSYCHOLOGICAL NOTE ---
Psych Note - Psych Note Date seen by psych provider: 04/25/19 Time seen by psych provider: 07:10 Psych Note: Patient is a 44-year-old female who presents to ED via POV with complaints of auditory and visual hallucinations subsequent to methamphetamine use. Patient was evaluated by behavioral health on 04/17/2019 for similar etiology and was encouraged to voluntarily present to [facility] for treatment. Patient was evaluated by [facility] for similar etiology on 04/21/2019 stating he did not remain at [facility] to complete treatment because he was not comfortable there. Patient has a history of substance abuse. Overnight attending physician completed the 24HR petition for evaluation and First Exam (page 4 not signed) for substance induced psychosis- was not faxed to [facility]. Patient refused to engage with clinician. Patient stated "I'm not talking." Clinician replied that he came to the ED for treatment for methamphetamine abuse and talking with behavioral health is part of treatment. Patient was facing clinician with his eyes closed. Clinician conduced check in: Patient would not respond to clinician (laid in bed with eyes closed despite clinician's multiple attempts wake him with verbal stimuli). Patient lightly tapped patient's foot was patient woke up. Patient was informed of discharge and provided detailed information regarding the street sheet and substance abuse resources provided. Patient requested to "sleep a little longer." Clinician declined patient's request. Impression/Plan: Patient is recommended for rescind of IVC and is cleared from acute psychiatric services. Patient refuses to engage with clinician. Patient was provided with a street sheet resource list with the contact information for the homeless [place] [facility] and [facility] highlighted. Patient was provided with a substance abuse treatment list with the contact information for [facility], [facility], and [facility] hightlighted. Patient's lack of engagement with behavioral health, lack of follow through with treatment, and multiple ED visits is suggestive of an attempts to have his basic needs met (food and [place] [facility]) and should be considered with similar self report of symptoms. Dr. Segura was consulted on the care and management of this patient; attending physician is in agreement with recommendations and disposition.
== END 2019-04-25 13:08 | disposition home or self-care (01) ==
LOC: ER 16:14
DX: F15.151 Other stimulant abuse with stimulant-induced psychotic disorder with hallucinations (principal); I10 Essential (primary) hypertension; R53.81 Other malaise; R63.4 Abnormal weight loss; F17.210 Nicotine dependence, cigarettes, uncomplicated; Z59.0 Homelessness; Z91.030 Bee allergy status
CPT/HCPCS: 93005; 99285; 96372; 36415; 80307 ×4; 84443; 85025; 80053; 81001; 71046; 93010; J1200; J1630; J2060